=== PATIENT | female | born 2000 | race American Indian/Alaskan Native ===

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

== ENCOUNTER 2022-04-08 10:51 | Emergency (ER) | payer OTHER ==
[~2022-04-08] VITALS: Ht 170.2 cm; Wt 92.4 kg
[2022-04-08] MEDS ORDERED: BUTALB-ACETAMI1 EAC2 PO (22:03)
== END 2022-04-08 22:20 | disposition home or self-care (01) ==
LOC: ED 10:51
DX: R51.9 Headache, unspecified (principal); Z20.822 Contact with and (suspected) exposure to COVID-19
CPT/HCPCS: 36415; 70450; 80053; 81001; 84703; 85025; 87502; 96361; 96374; 96375; 96376; 99284-25; C9803; J1200; J1885; J2405; J2765; J7030; U0003

== ENCOUNTER 2022-04-10 05:01 | Emergency (ER) | payer OTHER ==
[~2022-04-10] VITALS: Ht 170.2 cm; Wt 92.1 kg
[~2022-04-10 05:01] MED LIST changes: +BUTALB-ACETAMI1 EAC2 PO
--- OUTSIDE RECORDS SUMMARY | 2022-04-10 05:08 | XMS ---
PreManage Notification: ROSE AVILA Security Wink Cutter Operator Events No recent Security Events currently on file CRITERIA MET - [facility] - 2 Visits in 30 Days CARE PROVIDERS There are no care providers on record at this time. Alysha has no Care Guidelines for this patient. [facility]12 MO.) [facility] NOTE: Visits indicate total known visits. [facility] (12 MO.) [facility] [place] [facility] COMPLAINT: - HEADACHE 04/08/2022 10:51 [facility] [place] TYPE: Emergency COMPLAINT: - SEVERE HEADACHE INPATIENT VISIT TRACKING (12 MO.) No inpatient visits to display in this time frame [email or web address]
[2022-04-10] MEDS ORDERED: ULTRAM50 MG PO (06:55)
== END 2022-04-10 07:16 | disposition home or self-care (01) ==
LOC: ED 05:01
DX: H60.91 Unspecified otitis externa, right ear (principal)
CPT/HCPCS: 96361; 96374; 96375; 99283-25; J1100; J1200; J2270; J2550; J3030; J7030

== ENCOUNTER 2025-06-01 15:24 | Emergency (ER) | payer OTHER, BC ==
[~2025-06-01] VITALS: Ht 170.2 cm; Wt 95.4 kg
[~2025-06-01 15:24] MED LIST changes: +ULTRAM50 MG PO
[2025-06-01 17:08] VITALS: BP 133/85
== END 2025-06-01 17:10 | disposition home or self-care (01) ==
LOC: ED 15:24
DX: S63.502A Unspecified sprain of left wrist, initial encounter (principal); S80.11XA Contusion of right lower leg, initial encounter; V89.2XXA Person injured in unspecified motor-vehicle accident, traffic, initial encounter
CPT/HCPCS: 73110; 99284